=== PATIENT | female | born 1985 | race Caucasian/White ===

== ENCOUNTER 2021-09-09 16:41 | Emergency (ER) | payer MEDICAID ==
[~2021-09-09] VITALS: Ht 160 cm; Wt 90.4 kg
[2021-09-09 16:59] VITALS: BP 139/93
--- NOTE | 2021-09-09 21:48 | NUR ---
PER [facility], PT LEFT WITHOUT BEING SEEN Addendum: 09/09/21 at 2148 by YVETTE PT LEFT AUTUMNBY, SHAHZAD AHUJA
--- NOTE | 2021-09-09 21:49 | NUR ---
Patient left without D/C papers.
[2021-09-09 22:14] LABS: APPEARANCE,URINE CLEAR (CLEAR); BILIRUBIN,URINE NEGATIVE (NEGATIVE); BLOOD, URINE NEGATIVE (NEGATIVE); COLOR,URINE YELLOW (YELLOW); LEUKOCYTE ESTERASE ,URINE NEGATIVE (NEGATIVE); NITRITE, URINE NEGATIVE (NEGATIVE); PH,URINE 5.5 (5.0-9.0); UGLUCOSE NEGATIVE (NEGATIVE)
== END 2021-09-09 21:49 | disposition home or self-care (01) ==
LOC: MED 16:41
DX: O26.891 Other specified pregnancy related conditions, first trimester (principal); R10.32 Left lower quadrant pain; Z3A.01 Less than 8 weeks gestation of pregnancy
CPT/HCPCS: 76801; 81003; 81025; 99284; Q0092